=== PATIENT | male | born 1970 | race Caucasian/White ===

== ENCOUNTER 2018-11-12 23:25 | Emergency (ER) | payer SELFPAY ==
[2018-11-13] MEDS ORDERED: KETOROLAC 30 MG/ML INJ ONE (00:09)
[2018-11-13] MEDS ORDERED: ASPIRIN 81 MG CHEWABLE TABLET ONE ×2 (00:09→00:25)
[2018-11-13 00:25] LABS: Absolute Lymphocytes (CBC) 1.6 K/uL (0.7-4.9); Basophils % 1.3 % (0-1.3); Eosinophils % 3.8 % (0-4.4); Hematocrit 42.5 % (39.6-49.0); Lymphocytes % 34.1 % (15.3-44.8); MPV 7.6 fL (7.6-11.3); Monocytes % 8.1 % (3.3-12.3); RBC Red Blood Cell Count 4.38 M/uL (4.33-5.43)
[2018-11-13 00:28] LABS: Protime INR 0.84
[2018-11-13 00:42] LABS: ALT/SGPT 27 U/L (12-78); AST/SGOT 17 U/L (15-37); Albumin 3.6 g/dL (3.4-5.0); Alkaline Phosphatase 40 U/L (45-117); BUN Blood Urea Nitrogen 20 mg/dL (7-18); Bicarbonate 25 mmol/L (21-32); Bilirubin Direct < 0.1 mg/dL (0-0.2); Bilirubin Total 0.2 mg/dL (0.2-1.0); Glucose Level 107 mg/dL (74-106); Magnesium 2.4 mg/dL (1.8-2.4); Protein, Total 7.9 g/dL (6.4-8.2); Sodium Level 142 mmol/L (136-145); Troponin (Emerg Dept Use Only) < 0.02 ng/mL (0.0-0.045)
--- NOTE | 2018-11-13 00:45 | EDPHYS ---
Physician Documentation [facility] Name: Fernando Larsen Age: 48 yrs Sex: Male : 1970 Arrival Date: 11/12/2018 Time: 23:29 Bed 7 Private MD: ED Physician Mariano Morrell HPI: 11/12 23:50 This 48 yrs old Male presents to ER via Law Enforcement with complaints of cp Chest Pain. 23:50 The patient or guardian reports chest pain that is located primarily in the anterior cp chest wall, left. 23:50 Onset: suddenly, while in ED. The pain does not radiate. The chest pain is described as cp aching. Duration: The patient or guardian reports a single episode, that is still ongoing. Patient presents to ED with law enforcement and reports chest pain while in ED after attempt for blood draw. Historical: - Allergies: 23:44 No Known Allergies; jd3 - Home Meds: 23:44 thyroid med [Active]; high blood pressure med [Active]; jd3 - PMHx: 23:44 Thyroid problem; Hypertension; Anxiety; jd3 - PSHx: 23:44 left leg; left arm; jd3 - Immunization history:: Adult Immunizations up to date. - Social history:: Smoking status: Patient/guardian denies using tobacco, Patient/guardian denies using alcohol, street drugs. - Ebola Screening: : Patient negative for fever greater than or equal to 101.5 degrees Fahrenheit, and additional compatible Ebola Virus Disease symptoms. ROS: 11/13 00:00 Constitutional: Negative for body aches, chills, fever, poor PO intake. cp 00:00 Eyes: Negative for injury, pain, redness, and discharge. cp 00:00 ENT: Negative for drainage from ear(s), ear pain, sore throat, difficulty swallowing, difficulty handling secretions. 00:00 Cardiovascular: Positive for chest pain, Negative for edema, palpitations. 00:00 Respiratory: Negative for cough, shortness of breath, wheezing. 00:00 Abdomen/GI: Negative for abdominal pain, nausea, vomiting, and diarrhea, black/tarry stool, rectal bleeding. 00:00 Back: Negative for radiated pain. 00:00 : Negative for urinary symptoms. 00:00 Skin: Negative for rash. 00:00 Neuro: Negative for altered mental status, headache, weakness. 00:00 All other systems are negative. Exam: 11/12 23:44 ECG was reviewed by the Attending Physician. cp 11/13 00:05 Constitutional: The patient appears in no acute distress, alert, awake, cp non-diaphoretic, non-toxic, well developed, well nourished. 00:05 Head/Face: Normocephalic, atraumatic. cp 00:05 Eyes: Periorbital structures: appear normal, Pupils: equal, round, and reactive to light and accomodation, Extraocular movements: intact throughout, Conjunctiva: normal, no exudate, no injection, Lids and lashes: appear normal, bilaterally. 00:05 ENT: External ear(s): are unremarkable, Ear canal(s): are normal, clear, TM's: bulging, is not appreciated, bilaterally, dullness, bilaterally, erythema, is not appreciated, bilaterally, Nose: is normal, Mouth: Lips: moist, Oral mucosa: pink and intact, moist, Posterior pharynx: is normal, airway is patent, no erythema, no exudate. 00:05 Neck: ROM/movement: is normal, is supple, without pain, no range of motions limitations, no meningismus, no nuchal rigidity. 00:05 Chest/axilla: Inspection: normal, Palpation: is normal, no crepitus, no tenderness. 00:05 Cardiovascular: Rate: normal, Rhythm: regular, Edema: is not appreciated, JVD: is not appreciated. 00:05 Respiratory: the patient does not display signs of respiratory distress, Respirations: normal, no use of accessory muscles, no retractions, no splinting, no tachypnea, labored breathing, is not present, Breath sounds: are clear throughout, no decreased breath sounds, no stridor, no wheezing. 00:05 Abdomen/GI: Inspection: abdomen appears normal, Palpation: abdomen is soft and non-tender, in all quadrants. 00:05 Back: pain, is absent, ROM is normal. 00:05 Neuro: Orientation: to person, place \T\ time. Mentation: is normal, Motor: moves all fours, strength is normal, Sensation: is normal. Vital Signs: 11/12 23:44 BP 121 / 86; Pulse 94; Resp 20 S; Temp 98.4(O); Pulse Ox 97% on R/A; Weight 90.72 kg jd3 (R); Height 5 ft. 9 in. (175.26 cm) (R); Pain 6/10; 11/13 00:37 BP 115 / 87; Pulse 81; Resp 18 S; Pulse Ox 95% on R/A; jd3 11/12 23:44 Body Mass Index 29.53 (90.72 kg, 175.26 cm) jd3 MDM: 11/12 23:44 Patient medically screened. cp 11/13 00:44 The patient was given aspirin in the Emergency Department. cp 00:44 Data reviewed: vital signs, nurses notes, lab test result(s), EKG, and as a result, I cp will discharge patient. Test interpretation: by ED physician or midlevel provider: ECG. Counseling: I had a detailed discussion with the patient and/or guardian regarding: the historical points, exam findings, and any diagnostic results supporting the discharge/admit diagnosis, lab results, radiology results, to return to the emergency department if symptoms worsen or persist or if there are any questions or concerns that arise at home. Special discussion: Based on the patient's history, exam, and Dx evaluation, there is no indication for emergent intervention or inpatient Tx. It is understood by the patient/guardian that if the Sx's persist or worsen they need to return immediately for re-evaluation. ED course: VSS. Patient sleeping in exam room. 11/12 23:51 Order name: Basic Metabolic Panel; Complete Time: 00:43 cp 11/12 23:51 Order name: CBC with Diff; Complete Time: 00:43 cp 11/12 23:51 Order name: LFT's; Complete Time: 00:43 cp 11/12 23:51 Order name: Magnesium; Complete Time: 00:43 cp 11/12 23:51 Order name: PT-INR; Complete Time: 00:43 cp 11/12 23:51 Order name: Troponin (emerg Dept Use Only); Complete Time: 00:43 cp 11/12 23:51 Order name: EKG; Complete Time: 23:53 cp 11/12 23:51 Order name: Cardiac monitoring; Complete Time: 23:52 cp 11/12 23:51 Order name: EKG - Nurse/Tech; Complete Time: 23:52 cp 11/12 23:51 Order name: IV Saline Lock; Complete Time: 00:21 cp 11/12 23:51 Order name: Labs collected and sent; Complete Time: 00:21 cp 11/12 23:51 Order name: O2 Per Protocol; Complete Time: 23:52 cp 11/12 23:51 Order name: O2 Sat Monitoring; Complete Time: 23:52 cp EC/13 23:44 Rate is 90 beats/min. Rhythm is regular. SC interval is normal. QRS interval is normal. cp QT interval is normal. Interpreted by me. Reviewed by me. Administered Medications: 11/13 00:00 Drug: Aspirin Chewable Tablet 324 mg Route: PO; la1 00:05 Drug: TORadol 30 mg Route: IVP; Site: right forearm; la1 Disposition: 01:33 Co-signature as Attending Physician, Mariano Morrell MD. Disposition: 11/13/18 00:45 Discharged to Law Enforcement. Impression: Other chest pain. - Condition is Stable. - Discharge Instructions: Nonspecific Chest Pain, Aspirin and Your Heart. - Medication Reconciliation Form, Thank You Letter, Antibiotic Education, Prescription Opioid Use form. - Follow up: Private Physician; When: 2 - 3 days; Reason: Recheck today's complaints. - Problem is new. - Symptoms have improved. Signatures: Dispatcher [employer] Bernadine Lowe RN RN aa1 Mehul Negro RN RN la1 Eduar Mueller PA PA cp Starr, Gregory, MD MD Chester Davidson RN RN jd3 Corrections: (The following items were deleted from the chart) 00:48 00:45 11/13/2018 00:45 Discharged to Home. Impression: Other chest pain. Condition is cp Stable. Forms are Medication Reconciliation Form, Thank You Letter, Antibiotic Education, Prescription Opioid Use. Follow up: Private Physician; When: 2 - 3 days; Reason: Recheck today's complaints. Problem is new. Symptoms have improved. cp 00:53 00:48 11/13/2018 00:45 Discharged to Law Enforcement. Impression: Other chest pain. aa1 Condition is Stable. Discharge Instructions: Nonspecific Chest Pain, Aspirin and Your Heart. Forms are Medication Reconciliation Form, Thank You Letter, Antibiotic Education, Prescription Opioid Use. Follow up: Private Physician; When: 2 - 3 days; Reason: Recheck today's complaints. Problem is new. Symptoms have improved. cp
--- NOTE | 2018-11-13 00:45 | ER ---
Nurse's Notes [facility] Name: Fernando Larsen Age: 48 yrs Sex: Male : 1970 Arrival Date: 11/12/2018 Time: 23:29 Bed 7 Private MD: Diagnosis: Other chest pain Presentation: 11/12 23:36 Presenting complaint: Patient states: I am having chest pain before I came here. I was jd3 seen in [place] for chest pain recently and I was told all it was that I had really bad anxiety, but I don't know, I feel like I am having a heart attack.". Transition of care: patient was not received from another setting of care. Onset of symptoms was November 12, 2018. Risk Assessment: Do you want to hurt yourself or someone else? Patient reports no desire to harm self or others. Initial Sepsis Screen: Does the patient meet any 2 criteria? No. Patient's initial sepsis screen is negative. Does the patient have a suspected source of infection? No. Patient's initial sepsis screen is negative. Care prior to arrival: None. 23:36 Method Of Arrival: Law Enforcement: [place] [employer] jd3 23:36 Acuity: GREY 3 jd3 23:40 Note patient was brought in police custody and started to report chest pain. jd3 Historical: - Allergies: 23:44 No Known Allergies; jd3 - Home Meds: 23:44 thyroid med [Active]; high blood pressure med [Active]; jd3 - PMHx: 23:44 Thyroid problem; Hypertension; Anxiety; jd3 - PSHx: 23:44 left leg; left arm; jd3 - Immunization history:: Adult Immunizations up to date. - Social history:: Smoking status: Patient/guardian denies using tobacco, Patient/guardian denies using alcohol, street drugs. - Ebola Screening: : Patient negative for fever greater than or equal to 101.5 degrees Fahrenheit, and additional compatible Ebola Virus Disease symptoms. Screenin:37 Abuse screen: Denies threats or abuse. Denies injuries from another. Nutritional rr5 screening: No deficits noted. Tuberculosis screening: No symptoms or risk factors identified. Fall Risk IV access (20 points). Total Aranda Fall Scale indicates No Risk (0-24 pts). Assessment: 23:40 General: Appears in no apparent distress. uncomfortable, Behavior is anxious, escorted rr5 by police worker. Pain: Complains of pain in chest Pain does not radiate. Pain currently is 6 out of 10 on a pain scale. Quality of pain is described as aching, Pain began gradually, Is intermittent. 23:40 Neuro: Level of Consciousness is awake, alert, obeys commands, Oriented to person, rr5 place, time, situation, Appropriate for age. Cardiovascular: Reports chest pain, Capillary refill < 3 seconds Patient's skin is warm and dry. Respiratory: Airway is patent Respiratory effort is even, unlabored, Respiratory pattern is regular, symmetrical. GI: No signs and/or symptoms were reported involving the gastrointestinal system. : No signs and/or symptoms were reported regarding the genitourinary system. EENT: No signs and/or symptoms were reported regarding the EENT system. Derm: Skin is intact, Skin temperature is warm. Musculoskeletal: Capillary refill < 3 seconds, Range of motion: intact in all extremities. 23:40 General: Smells of alcohol. rr5 11/13 00:52 Reassessment: Patient appears in no apparent distress at this time. Patient is alert, aa1 oriented x 3, equal unlabored respirations, skin warm/dry/pink. Discussed d/c \\T\\ f/u instructions to pt; denies questions or concerns at this time. Vital Signs: 11/12 23:44 BP 121 / 86; Pulse 94; Resp 20 S; Temp 98.4(O); Pulse Ox 97% on R/A; Weight 90.72 kg jd3 (R); Height 5 ft. 9 in. (175.26 cm) (R); Pain 6/10; 11/13 00:37 BP 115 / 87; Pulse 81; Resp 18 S; Pulse Ox 95% on R/A; jd3 11/12 23:44 Body Mass Index 29.53 (90.72 kg, 175.26 cm) jd3 ED Course: 11/12 23:29 Patient arrived in ED. aa1 23:36 Mehul Negro, RN is Primary Nurse. la1 23:37 Primary Nurse role handed off by Mehul Negro RN rr5 23:37 Matthew Olson RN is Primary Nurse. rr5 23:37 Patient has correct armband on for positive identification. Bed in low position. Call rr5 light in reach. Side rails up X2. police at bedside. 23:39 Eduar Mueller PA is PHCP. cp 23:39 Mariano Morrell MD is Attending Physician. cp 23:40 Triage completed. jd3 23:47 equipment monitor phototypesetting on. Pulse ox on. NIBP on. jd3 23:47 Patient maintains SpO2 saturation greater than 95% on room air. jd3 23:48 Arm band placed on. jd3 11/13 00:05 Inserted saline lock: 22 gauge in right forearm, using aseptic technique. Blood la1 collected. 00:52 No provider procedures requiring assistance completed. IV discontinued, intact, aa1 bleeding controlled, No redness/swelling at site. Pressure dressing applied. Administered Medications: 00:00 Drug: Aspirin Chewable Tablet 324 mg Route: PO; la1 00:05 Drug: TORadol 30 mg Route: IVP; Site: right forearm; la1 Outcome: 00:45 Discharge ordered by MD. cp 00:52 Discharged to Law Enforcement aa1 00:52 Condition: good 00:52 Discharge instructions given to patient, police, Instructed on discharge instructions, follow up and referral plans. medication usage, Demonstrated understanding of instructions, follow-up care, medications. 00:53 Patient left the ED. aa1 Signatures: Bernadine Otto RN RN aa1 Mehul Negro RN RN la1 Eduar Mueller PA PA cp Davies, Jonathon, RN RN jd3 Matthew Olson RN RN rr5
--- NOTE | 2018-11-13 05:57 | EKG ---
Test Date: 2018-11-12 Test Time: 23:41:05 Sap Pi Architect: NOLA MEASUREMENT RESULTS: Intervals: Rate: 90 NV: 172 QRSD: 94 QT: 358 QTc: 437 Harmans: P: 74 NV: 172 QRS: 77 T: 9 INTERPRETIVE STATEMENTS: Normal sinus rhythm Normal ECG No previous ECG available for comparison Electronically Signed On 11-13-18 05:56:53 CDT by Everardo Cortez
== END 2018-11-13 00:53 ==
LOC: ER 23:25 → EDBD 23:25 → ER 11-13 00:53
DX: R07.89 Other chest pain (principal); E03.9 Hypothyroidism, unspecified; I10 Essential (primary) hypertension
CPT/HCPCS: 36415; 80048; 80076; 83735; 84484; 85025; 85610; 93005; 96374; 99285